=== PATIENT | female | born 1985 | race Hispanic/Latino ===

== ENCOUNTER 2016-08-11 18:49 | Observation (INO) | payer SELFPAY ==
[2016-08-11 18:53] VITALS: BP 97/56; PULSE 98; RESP 18; TEMP 98.2; O2SAT 99
--- NOTE | 2016-08-11 19:32 | ED PDOC ---
HPI: Psych/Substance Abuse Time Seen by Provider: 08/11/16 19:09 Chief Complaint (Nursing): Psychiatric Evaluation Chief Complaint (Provider): crisis evaluation History Per: Patient History/Exam Limitations: no limitations Additional Complaint(s): 31yo female was brought in by EMS. Patient states she had an argument with her boyfriend and then drank 3 [employer] Lemonades at 2000 yesterday (23 hours ago ). No alcohol in last 12 hours. She has depression but does not take any medications. No suicidal or homicidal ideation. Past Medical History Reviewed: Historical Data, Nursing Documentation, Vital Signs Vital Signs: Last Vital Signs Temp 98.2 F 08/11/16 18:52 Pulse 98 H 08/11/16 18:52 Resp 18 08/11/16 18:52 BP 97/56 L 08/11/16 18:52 Pulse Ox 99 08/11/16 18:52 - Medical History PMH: Depression - Family History Family History: States: Unknown Family Hx - Allergies Allergies/Adverse Reactions: Allergies Allergy/AdvReac Type Severity Reaction Status Date / Time Sulfa (Sulfonamide Allergy RASH Verified 08/11/16 18:51 Antibiotics) Review of Systems ROS Statement: Except As Marked, All Systems Reviewed And Found Negative Psych: Positive for: Depression. Negative for: Suicidal ideation, Other ( homicidal ideation) Physical Exam - Reviewed Nursing Documentation Reviewed: Yes Vital Signs Reviewed: Yes - Physical Exam Appears: Positive for: Well (Disheveled, malodorous), Non-toxic, No Acute Distress Head Exam: Positive for: ATRAUMATIC, NORMAL INSPECTION, NORMOCEPHALIC Skin: Positive for: Warm, Dry Eye Exam: Positive for: EOMI, PERRL Cardiovascular/Chest: Positive for: Regular Rate, Rhythm Respiratory: Positive for: Normal Breath Sounds. Negative for: Rales, Rhonchi, Wheezing Gastrointestinal/Abdominal: Positive for: Soft. Negative for: Tenderness Extremity: Positive for: Normal ROM Neurologic/Psych: Positive for: Other (crying) - Laboratory Results Result Diagrams: 08/11/16 19:58 08/11/16 19:58 - ECG O2 Sat by Pulse Oximetry: 99 (RA) Pulse Ox Interpretation: Normal Medical Decision Making Medical Decision Makin Labs, IV fluids, zofran ordered. Patient will be seen by crisis. ED OBSERVATION Date of observation admission: 08/11/16 Time of observation admission: 20:00 - Observation admission statement Patient is being placed in observation because:: Secondary to ED workup - Goals of Observation Goals of observation are:: Labs, crisis eval, and final dispo. - Progress Note Progress Note: 08/12/16 06:00 Pt is awake, alert, and oriented. Pt is walking with a steady gait. Pt will be discharged by Dr. Ventura with a dx of Alcohol use disorder. Disposition - Clinical Impression Clinical Impression: Alcohol use disorder - Disposition Disposition: Routine/Home Disposition Time: 06:00 Condition: IMPROVED Additional Comments - Additional Comments Additional Comments: Scribe Attestation: Documented by Mehul Sandhu acting as a scribe for Samantha Hua MD. Scribe Attestation: All medical record entries made by the Scribe were at my direction and personally dictated by me. I have reviewed the chart and agree that the record accurately reflects my personal performance of the history, physical exam, medical decision making, and the department course for this patient. I have also personally directed, reviewed, and agree with the discharge instructions and disposition.
[2016-08-11] MEDS ORDERED: Sodium Chloride 0.9% 1,000 ML IV SCH (20:00)
[2016-08-11 20:03] LABS: BASO # 0.1 K/uL (0.0-0.2); BASO % 1.1 % (0.0-2.0); EOS # 0.1 K/uL (0.0-0.7); EOS % 1.8 % (0.0-4.0); HEMATOCRIT 41.7 % (34.0-47.0); LYMPH # 1.7 K/uL (1.0-4.3); LYMPH % 20.7 % (20.0-40.0); MEAN CELL VOLUME 91.9 fl (81.0-99.0); MEAN CORPUSCULAR HEMOGLOBIN 32.5 pg (27.0-31.0); MEAN CORPUSCULAR HGB CONC 35.4 g/dL (33.0-37.0); MEAN PLATELET VOLUME 6.9 fl (7.2-11.7); MONO # 0.9 K/uL (0.0-0.8); NEUT # 5.4 K/uL (1.8-7.0); NEUT % 65.4 % (50.0-75.0); RED CELL DISTRIBUTION WIDTH 13.5 % (11.5-14.5); WHITE BLOOD COUNT 8.3 K/uL (4.8-10.8)
[2016-08-11 20:12] LABS: ALCOHOL SERUM 219 mg/dl (0-10); BLOOD UREA NITROGEN 14 mg/dl (7-17); CARBON DIOXIDE 23 mmol/L (22-30); CHLORIDE 103 mmol/L (98-107); GFR AFRICAN-AMERICAN > 60; GLUCOSE,RANDOM 105 mg/dL (65-105); POTASSIUM 3.4 MMOL/L (3.6-5.0); SODIUM 141 mmol/l (132-148)
--- NOTE | 2016-08-12 16:23 | RAD ---
PROCEDURE: Left small finger radiographs. HISTORY: TRAUMA COMPARISON: None. TECHNIQUE: AP radiograph of the left hand, as well as spot oblique and lateral images of left small finger were obtained. FINDINGS: LEFT SMALL FINGER: Mild essentially nondisplaced fracture of the proximal aspect distal 5th phalanx. Pulse oximeter limits evaluation of the distal 2nd phalanx. Remainder of the left hand (as seen on the AP view) is grossly unremarkable. JOINTS: No dislocation. SOFT TISSUES: Soft tissue swelling. OTHER FINDINGS: None. IMPRESSION: Mild essentially nondisplaced fracture of the proximal aspect 5th distal phalanx. Soft tissue swelling.
--- NOTE | 2016-08-12 16:26 | RAD ---
PROCEDURE: Radiographs of the right elbow. HISTORY: TRAUMA COMPARISON: None available. FINDINGS: BONES: No acute displaced fracture. JOINTS: No dislocation. SOFT TISSUES: Unremarkable. No evidence of radiopaque foreign body. JOINT EFFUSION: No significant joint effusion. OTHER FINDINGS: None IMPRESSION: No acute displaced fracture, dislocation, or significant joint effusion identified. If high clinical index of suspicion for occult fracture persists, recommend further evaluation with cross-sectional imaging.
== END 2016-08-12 06:20 | disposition home or self-care (01) ==
LOC: H.ER 18:49 → H.EROBSV 20:00
PROVIDERS: ADMIT Emergency Medicine; ATTEND Emergency Medicine
DX: F10.129 Alcohol abuse with intoxication, unspecified (principal); F32.9 Major depressive disorder, single episode, unspecified; M25.511 Pain in right shoulder; W19.XXXA Unspecified fall, initial encounter
CPT/HCPCS: 73080; 73140; 80048; 85025; 96361; 96374; 99282; G0378; G0480; J2405; J7040